=== PATIENT | female | born 1970 | race African-American/Black ===

== ENCOUNTER 2017-12-04 23:37 | Emergency (ER) | payer BC, OTHER ==
[~2017-12-04] VITALS: Ht 175.3 cm; Wt 145.2 kg
--- NOTE | ~2017-12-04 | EKG ---
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: KATY : 1970 Requested By: Wyatt Dye Order Number: [id number] MD: Mike Childress Measurements Intervals [place] Rate: 83 P: 35 CO: 159 QRS: -6 QRSD: 94 T: 1 QT: 388 QTc: 456 Interpretive Statements Sinus rhythm Inferior infarct, old Compared to ECG 06/02/2011 01:07:25 Inferior Q waves are more prominent Electronically Signed On 12-05-2017 8:47:01 CDT by Mike Childress [email or web address] <ELECTRONICALLY SIGNED> By: Mike Childress MD, [facility] 12/05/17 [id number] Mike Childress MD, FACC /EPI
[~2017-12-04 23:37] MED LIST: HYDROCODON-ACE1 EAC7 PO; IBUPROFEN 800800 M1 PO; NOHOMEMEDICATIONS; SENNA S TABLET1 EACH PO; TRAMADOL 50 MG50 MG PO; TRAMADOL HCL50 MG PO; ZOFRAN4 MG PO
[2017-12-04] MEDS ORDERED: LISINOPRIL20 MG PO (23:47)
[2017-12-04] MEDS ORDERED: CELEBREX 200 M200 M1 PO (23:48)
[2017-12-04 23:59] LABS: ABSOLUTE NEUTROPHILS 5.5 thou/uL (1.4-8.2); BASOPHILS 0.8 % (0.0-2.0); EOSINOPHILS 1.5 % (0.0-3.0); HEMATOCRIT 39.6 % (37.0-47.0); HEMOGLOBIN 13.6 gm/dL (12.0-15.0); LYMPHOCYTES 29.1 % (24.0-44.0); MCH 27.8 pg (26.0-34.0); MCHC 34.4 g/dL (28.0-37.0); MCV 80.8 fL (80.0-100.0); MONOCYTES 6.9 % (1.0-8.0); PLATELET COUNT 256 thou/uL (150-400); POLYS 61.7 % (36.0-66.0); RDW 15.7 % (10.5-14.5); WBC 8.9 thou/uL (4.0-11.0)
[2017-12-05 00:11] LABS: ANION GAP 2 mmol/L (7-16); BUN 16 mg/dL (7-18); CALCIUM 9.7 mg/dL (8.5-10.1); CHLORIDE 103 mmol/L (98-107); CO2 31 mmol/L (21-32); CREATININE 1.1 mg/dL (0.6-1.0); GLUCOSE 114 mg/dL (74-106); POTASSIUM 3.8 mmol/L (3.5-5.1); SODIUM 136 mmol/L (136-145)
[2017-12-05 00:20] LABS: ALBUMIN 3.1 g/dL (3.4-5.0); MAGNESIUM 1.9 mg/dL (1.8-2.4); SGOT 17 U/L (15-37); SGPT 18 U/L (30-65); TOTAL BILIRUBIN 0.2 mg/dL (<0.1-1.0); TOTAL PROTEIN 7.2 g/dL (6.4-8.2); TROPONIN-I <0.06 ng/mL (<0.06)
[2017-12-05] MEDS ORDERED: ANTIVERT25 MG PO (02:24)
[2017-12-05 02:38] VITALS: BP 151/87
== END 2017-12-05 02:39 | disposition home or self-care (01) ==
LOC: ER 23:37
PROVIDERS: Emergency Medicine
DX: R42 Dizziness and giddiness (principal); R20.2 Paresthesia of skin; R11.0 Nausea; E66.9 Obesity, unspecified; Z68.42 Body mass index [BMI] 45.0-49.9, adult; Z90.721 Acquired absence of ovaries, unilateral

== ENCOUNTER 2021-04-19 01:04 | Emergency (ER) | payer OTHER ==
[~2021-04-19] VITALS: Ht 175.3 cm; Wt 145.2 kg
[~2021-04-19 01:04] MED LIST changes: +ANTIVERT25 MG PO; +CELEBREX 200 M200 M1 PO; +LISINOPRIL20 MG PO
[2021-04-19] MEDS ORDERED: PRINIVIL40 MG PO (01:48)
[2021-04-19] MEDS ORDERED: NORVASC5 MG PO (01:49)
[2021-04-19] MEDS ORDERED: HYDROCHLOROTH12.5 M2 PO (01:50)
[2021-04-19 02:00] LABS: POTASSIUM 3.7 mmol/L (3.5-5.1)
[2021-04-19 02:01] LABS: ABSOLUTE NEUTROPHILS 6.4 thou/uL (1.4-8.2); EOSINOPHILS 2.7 % (0.0-3.0); HEMATOCRIT 38.1 % (37.0-47.0); HEMOGLOBIN 12.6 gm/dL (12.0-15.0); LYMPHOCYTES 20.7 % (24.0-44.0); MCH 26.9 pg (26.0-34.0); MCV 81.5 fL (80.0-100.0); MONOCYTES 7.3 % (1.0-8.0); PLATELET COUNT 303 thou/uL (150-400); POLYS 68.3 % (36.0-66.0); RBC 4.67 mil/uL (4.20-5.00); WBC 9.4 thou/uL (4.0-11.0)
[2021-04-19 02:09] LABS: ALBUMIN 3.4 g/dL (3.4-5.0); TOTAL BILIRUBIN 0.3 mg/dL (0.2-1.0); TOTAL PROTEIN 7.2 g/dL (6.4-8.2)
[2021-04-19] MEDS ORDERED: PREDNISONE 20 M20 MG PO (04:47)
[2021-04-19 05:01] VITALS: BP 140/72
--- NOTE | 2021-04-19 11:14 | EKG ---
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1970 Requested By: Jerry Saini Order Number: [id number] MD: Mike Childress Measurements Intervals [place] Rate: 107 P: 65 [place]: 177 QRS: 26 QRSD: 98 T: 2 QT: 344 QTc: 459 Interpretive Statements Sinus tachycardia Baseline wander in lead(s) V2 Compared to ECG 12/04/2017 23:45:16 Myocardial infarct finding no longer present Electronically Signed On 04-19-2021 11:13:52 [employer]ORY [employer]ER by Mike Childress [email or web address] <ELECTRONICALLY SIGNED> By: Mike Childress MD, [facility] 04/19/21 1113 [id number] Mike Childress MD, FACC /EPI
== END 2021-04-19 05:01 | disposition home or self-care (01) ==
LOC: ER 01:04
PROVIDERS: Emergency Medicine
DX: R06.02 Shortness of breath (principal); Z20.822 Contact with and (suspected) exposure to COVID-19; Z79.899 Other long term (current) drug therapy; Z98.51 Tubal ligation status; Z90.721 Acquired absence of ovaries, unilateral